=== PATIENT | male | born 1955 | race Caucasian/White ===

== ENCOUNTER 2020-07-07 16:43 | Emergency (ER) | payer BC ==
[2020-07-07 17:01] VITALS: BP 131/79; PULSE 105
[2020-07-07] MEDS ORDERED: Sodium Phosphate,Monobasic/Sodium Phosphate,Dibasic Enema 133 ML Bottle RECTAL ONE (17:13)
--- NOTE | 2020-07-07 17:13 | EDM.PDOC ---
ED HPI GENERAL MEDICAL PROBLEM - General Chief Complaint: General Stated Complaint: CONSTIPATION Time Seen by Provider: 07/07/20 17:00 Source of Information: Reports: Patient History Limitations: Reports: No Limitations - History of Present Illness INITIAL COMMENTS - FREE TEXT/NARRATIVE: 65 YO WM PRESENTS TO ER COMPLAINING OF CONSTIPATION X 6 DAYS. PT STATES HE RECENTLY STARTED CHEMOTHERAPY AND WAS CONCERNED THIS MIGHT BE THE REASON FOR HIS CONSTIPATION. PT DENIES ANY ABDOMINAL PAIN, NO NAUSEA/VOMITING. PT REPORTS HE HAS BEEN PASSING GAS AND EATING AND DRINKING NORMALLY. PT DENIES FEVER/CHILLS, NO RECTAL BLEEDING. PT STATES HE TOOK STOOL SOFTENER AND MILK OF MAGNESIA WITHOUT SUCCESSFUL BM. Duration: Day(s): (6) Location: Reports: Generalized Severity: Mild Worsens with: Reports: None Associated Symptoms: Reports: No Other Symptoms. Denies: Fever/Chills, Loss of Appetite, Nausea/Vomiting, Weakness - Related Data Allergies Allergy/AdvReac Type Severity Reaction Status Date / Time No Known Drug Allergies Allergy NKDA Verified 07/07/20 17:00 Home Meds: Home Meds Cyanocobalamin/Folic AC/Vit B6 [Westab Max Tablet] 1 tab PO DAILY 07/07/20 [History] Ondansetron [Zofran] 8 mg PO Q8H PRN 07/07/20 [History] Pantoprazole [ProTONIX] 40 mg PO DAILY 07/07/20 [History] azaCITIDine [Azacitidine] 100 mg IJ ASDIRECTED 07/07/20 [History] polyethylene glycoL 3350 [MiraLAX] 17 gm PO DAILY PRN #10 packet 07/07/20 [Rx] Past Medical History Musculoskeletal History: Reports: Other (See Below) Other Musculoskeletal History: broken off drill bit to left knee - Infectious Disease History Infectious Disease History: Reports: Chicken Pox, Measles - Past Surgical History Musculoskeletal Surgical History: Reports: Other (See Below) Social & Family History - Family History : Reports: Renal Disease/Insufficiency Endocrine/Metabolic: Reports: Diabetes, type II ED ROS GENERAL - Review of Systems Review Of Systems: See Below Constitutional: Reports: No Symptoms HEENT: Reports: No Symptoms Respiratory: Reports: No Symptoms Cardiovascular: Reports: No Symptoms Endocrine: Reports: No Symptoms GI/Abdominal: Reports: No Symptoms : Reports: No Symptoms Musculoskeletal: Reports: No Symptoms Skin: Reports: No Symptoms Neurological: Reports: No Symptoms Psychiatric: Reports: No Symptoms Hematologic/Lymphatic: Reports: No Symptoms Immunologic: Reports: No Symptoms ED EXAM, GENERAL - Physical Exam Exam: See Below Exam Limited By: No Limitations General Appearance: Alert, WD/WN, No Apparent Distress Throat/Mouth: Normal Inspection, Normal Lips, Normal Teeth, Normal Gums, Normal Oropharynx, Normal Voice, No Airway Compromise Head: Atraumatic, Normocephalic Neck: Normal Inspection, Supple, Non-Tender, Full Range of Motion Respiratory/Chest: No Respiratory Distress, Lungs Clear, Normal Breath Sounds, No Accessory Muscle Use, Chest Non-Tender Cardiovascular: Normal Peripheral Pulses, Regular Rate, Rhythm, No Edema, No Gallop, No JVD, No Murmur, No Rub GI/Abdominal: Normal Bowel Sounds, Soft, Non-Tender, No Organomegaly, No Distention, No Abnormal Bruit, No Mass Back Exam: Normal Inspection, Full Range of Motion, NT Extremities: Normal Inspection, Normal Range of Motion, Non-Tender, Normal Capillary Refill, No Pedal Edema Neurological: Alert, Oriented, CN II-XII Intact, Normal Cognition, Normal Gait, Normal Reflexes, No Motor/Sensory Deficits Psychiatric: Normal Affect, Normal Mood Skin Exam: Warm, Dry, Intact, Normal Color, No Rash Lymphatic: No Adenopathy Course - Vital Signs Last Recorded V/S: Last Vital Signs Temp 36.7 C 07/07/20 16:50 Pulse 105 H 07/07/20 16:50 Resp 18 07/07/20 16:50 BP 131/79 07/07/20 16:50 Pulse Ox 99 07/07/20 16:50 - Orders/Labs/Meds Meds: Medications Discontinued Medications Generic Name Dose Route Start Last Admin Trade Name Freq PRN Reason Stop Dose Admin Sodium Biphosphate/Sodium Phosphate 133 ml 07/07/20 17:13 07/07/20 17:19 Fleet Enema RECTAL 07/07/20 17:14 133 ml ONETIME ONE Administration Departure - Departure Time of Disposition: 17:33 Disposition: Home, Self-Care 01 Condition: Good Clinical Impression: Constipation Qualifiers: Constipation type: slow transit constipation Qualified Code(s): K59.01 - Slow transit constipation - Discharge Information Prescriptions: polyethylene glycoL 3350 [MiraLAX] 17 gm PO DAILY PRN #10 packet PRN Reason: Constipation Instructions: Constipation, Adult, [id number] Referrals: Cameron Rachel RESIDENTIAL CAREGIVER [Primary Care Provider] - Forms: ED Department Discharge Additional Instructions: 1. DISCHARGE HOME 2. MIRALAX FOR CONTINUED CONSTIPATION 3. DRINK PLENTY OF FLUIDS AND MAINTAIN AN ACTIVE LIFESTYLE 4. FOLLOW UP WITH PCP IF SYMPTOMS CONTINUE 5. RETURN TO ER FOR WORSENING SYMPTOMS Sepsis Event Note (ED) - Evaluation Sepsis Screening Result: No Definite Risk - Focused Exam Vital Signs: Vital Signs Temp Pulse Resp BP Pulse Ox 07/07/20 16:50 36.7 C 105 H 18 131/79 99 - Assessment/Plan Assessment:: 1. CONSTIPATION Plan: 1. DISCHARGE HOME 2. MIRALAX FOR CONTINUED CONSTIPATION 3. DRINK PLENTY OF FLUIDS AND MAINTAIN AN ACTIVE LIFESTYLE 4. FOLLOW UP WITH PCP IF SYMPTOMS CONTINUE 5. RETURN TO ER FOR WORSENING SYMPTOMS
[2020-07-07] MEDS ORDERED: Magnesium Citrate Solution 296 ML Bottle PO ONE (17:37)
== END 2020-07-07 18:00 | disposition home or self-care (01) ==
LOC: KA.ED 16:43
DX: K59.01 Slow transit constipation (principal)
CPT/HCPCS: 99283; A9270-GY

== ENCOUNTER 2020-08-11 16:22 | Emergency (ER) | payer BC ==
[2020-08-11] MEDS ORDERED: Ondansetron 4 MG/2 ML SDV IVPUSH ONE (16:23)
[2020-08-11] MEDS ORDERED: Sodium Chloride 0.9% 1,000 ML IV ONE (16:23)
--- NOTE | 2020-08-11 16:31 | EDM.PDOC ---
ED HPI GENERAL MEDICAL PROBLEM - General Chief Complaint: Gastrointestinal Problem Stated Complaint: N/V/D Time Seen by Provider: 08/11/20 16:30 Source of Information: Reports: Patient - History of Present Illness INITIAL COMMENTS - FREE TEXT/NARRATIVE: Garcia, 65-year-old male, presents today after experiencing nausea vomiting as well as diarrhea earlier in the day. He feels somewhat fatigued at this time. Was exposed to a grandchild on Wednesday who had gastrointestinal symptoms at that time. Had low-grade fever at home but no fever here upon his arrival. Received platelets and blood transfusion on Wednesday, 03 August 2020 had [place] secondary of his chemotherapy treatment. Is due for lab work again tomorrow secondary of his chronic recurring anemia trying to maintain hemoglobin of 6.5 or greater, and thrombocytopenia, platelets greater than 10. He previously had COVID-19 roughly 2 months ago and was asymptomatic with that diagnosis. He had no sequela after the first month after diagnosis. Onset: Today, Sudden Duration: Hour(s): - Related Data Allergies Allergy/AdvReac Type Severity Reaction Status Date / Time No Known Drug Allergies Allergy NKDA Verified 08/11/20 16:47 Home Meds: Home Meds Cyanocobalamin/Folic AC/Vit B6 [Westab Max Tablet] 1 tab PO DAILY 07/07/20 [History] Ondansetron [Zofran] 8 mg PO Q8H PRN 07/07/20 [History] Pantoprazole [ProTONIX] 40 mg PO DAILY 07/07/20 [History] azaCITIDine [Azacitidine] 100 mg IJ ASDIRECTED 07/07/20 [History] polyethylene glycoL 3350 [MiraLAX] 17 gm PO DAILY PRN #10 packet 07/07/20 [Rx] Past Medical History HEENT History: Reports: Impaired Vision Musculoskeletal History: Reports: Other (See Below) Other Musculoskeletal History: broken off drill bit to left knee Oncologic (Cancer) History: Reports: Other (See Below) (MDS Myelodysplastic syndrome) - Infectious Disease History Infectious Disease History: Reports: Chicken Pox, Measles - Past Surgical History Musculoskeletal Surgical History: Reports: Other (See Below) Social & Family History - Family History : Reports: Renal Disease/Insufficiency Endocrine/Metabolic: Reports: Diabetes, type II - Caffeine Use Caffeine Use: Reports: None ED ROS GENERAL - Review of Systems Review Of Systems: Comprehensive ROS is negative, except as noted in HPI. ED EXAM, GENERAL - Physical Exam Exam: See Below Free Text/Narrative:: Alert, oriented, with evidence of pallor. HEENT is negative discharge or deformity. There are bruises to the upper extremities visible. Neck is soft supple no lymphadenopathy Thorax is clear mildly diminished bases with no wheezes nor crackles. Cardiac is S1-S2 with no evidence of murmur. Abdomen is soft bowel sounds are present. There is trace edema to the lower extremities. Skin is warm and dry. Course - Vital Signs Last Recorded V/S: Last Vital Signs Temp 101.1 F H 08/11/20 17:30 Pulse 89 08/11/20 17:45 Resp 16 08/11/20 17:45 BP 96/55 L 08/11/20 17:45 Pulse Ox 98 08/11/20 17:45 - Orders/Labs/Meds Orders: Active Orders 24 hr Category Date Time Status Cefepime [Maxipime] 1 gm Med 08/11/20 17:54 Active Sodium Chloride 0.9% [Normal Saline] 50 ml IV ONETIME Sodium Chloride 0.9% [Normal Saline] 50 ml Med 08/11/20 18:00 Active IV ASDIRECTED Medication Orders Cefepime HCl 1 gm/ Sodium (Chloride) 50 mls @ 100 mls/hr IV ONETIME ONE Stop: 08/11/20 18:23 Sodium Chloride (Normal Saline) 50 mls @ 100 mls/hr IV ASDIRECTED SILVINA Labs: Laboratory Tests 08/11/20 08/11/20 Range/Units 16:30 16:55 WBC 6.22 (5.00-10.00) 10^3/uL RBC 1.74 L (4.50-6.00) 10^6/uL Hgb 5.2 L* (13.0-17.0) g/dL Hct 16.3 L* (40.0-52.0) % MCV 93.7 H (82.0-92.0) fL MCH 29.9 (27.0-31.0) pg MCHC 31.9 L (32.0-36.0) g/dL RDW 17.9 H (11.5-14.5) % Plt Count 3 L* (150-400) 10^3/uL MPV TNP Immature Gran % (Auto) 0.6 (0.0-5.0) % Neut % (Auto) 76.8 H (50.0-70.0) % Lymph % (Auto) 4.3 L (20.0-40.0) % [place] % (Auto) 17.5 H (2.0-8.0) % Eos % (Auto) 0.6 L (1.0-3.0) % Baso % (Auto) 0.2 (0.0-1.0) % Neut # (Auto) 4.77 (2.50-7.00) 10^3/uL Lymph # (Auto) 0.27 L (1.00-4.00) 10^3/uL [place] # (Auto) 1.09 H (0.10-0.80) 10^3/uL Eos # (Auto) 0.04 L (0.10-0.30) 10^3/uL Baso # (Auto) 0.01 (0.00-0.10) 10^3/uL Immature Gran # (Auto) 0.04 (0.00-0.50) 10^3/uL Sodium 138 (136-145) mmol/L Potassium 3.9 (3.5-5.1) mmol/L Chloride 105 (98-107) mmol/L Carbon Dioxide 25.0 (21.0-32.0) mmol/L Anion Gap 11.9 (5-15) mmol/L BUN 18 (7-18) mg/dL Creatinine 0.86 (0.51-1.17) mg/dL Est Cr Clr Drug Dosing 89.08 mL/min Estimated GFR (MDRD) > 60 mL/min Glucose 139 (70-140) mg/dL Calcium 7.7 L (8.7-10.3) mg/dL Total Bilirubin 0.9 (0.2-1.0) mg/dL AST 17 (15-37) U/L ALT 29 (14-63) U/L Alkaline Phosphatase 56 (46-116) U/L Total Protein 6.0 L (6.4-8.2) g/dL Albumin 3.09 L (3.40-5.00) g/dL Meds: Medications Generic Name Dose Route Start Last Admin Trade Name Freq PRN Reason Stop Dose Admin Cefepime HCl 1 gm/ Sodium 50 mls @ 100 mls/hr 08/11/20 17:54 Chloride IV 08/11/20 18:23 ONETIME ONE Sodium Chloride 50 mls @ 100 mls/hr 08/11/20 18:00 Normal Saline IV ASDIRECTED SILVINA Discontinued Medications Generic Name Dose Route Start Last Admin Trade Name Gabbi PRN Reason Stop Dose Admin Sodium Chloride 1,000 mls @ 999 mls/hr 08/11/20 16:23 08/11/20 16:30 Normal Saline IV 08/11/20 17:23 999 mls/hr .BOLUS ONE Administration Ondansetron HCl 4 mg 08/11/20 16:23 08/11/20 16:40 Zofran IVPUSH 08/11/20 16:24 4 mg ONETIME ONE Administration - Re-Assessments/Exams Free Text/Narrative Re-Assessment/Exam: 08/11/20 17:48 Contact was made at 1710 to the [facility] with conversation internal medicine. They are unable to accept Mr. Dominguez secondary of amount of blood in hand as well as platelets available. Concern for antibody development also plays a part in this as he is now undergone several previous transfusions. 1725 phone call was made to [facility] 1 call and was placed on hold awaiting at this time for return phone call to see if they would be able to accept Mr. Dominguez for platelet and red blood cell infusion. 08/11/20 18:09 Phone call return from [facility] [address] Buck accepts patient to the [facility] facility. With recent spike in his temperature to 101.1 he recommended a gram of cefepime to be administered and chest x-ray be performed. Due to 30-minute drive for our radiology staff production assembler in her ambulance being available in 10 minutes, chest x-ray will be deferred to here to be performed at [facility] with antibiotic to be infused and ambulance transport to pursue to [facility]. Departure - Departure Time of Disposition: 18:10 Disposition: DC/Tfer to Acute Hospital 02 Condition: Fair Clinical Impression: MDS (myelodysplastic syndrome), Anemia, Disorder involving thrombocytopenia - Discharge Information *PRESCRIPTION DRUG MONITORING PROGRAM REVIEWED*: Not Applicable *COPY OF PRESCRIPTION DRUG MONITORING REPORT IN PATIENT JACKIE: Not Applicable Forms: ED Department Discharge, Interfacility Transfer EMTALA Additional Instructions: Transfer by [facility] ambulance to [facility]. Sepsis Event Note (ED) - Focused Exam Vital Signs: Vital Signs Temp Pulse Resp BP Pulse Ox 08/11/20 17:45 89 16 96/55 L 98 08/11/20 17:30 101.1 F H 87 98 H 95/56 L 08/11/20 17:15 86 16 89/52 L 97 08/11/20 16:50 91 16 93/53 L 98 08/11/20 16:49 95 95/58 L 98 08/11/20 16:22 99.6 F 93 16 110/61 97 - Problem List & Annotations (1) MDS (myelodysplastic syndrome) SNOMED Code(s): 357049115 Code(s): D46.9 - MYELODYSPLASTIC SYNDROME, UNSPECIFIED Status: Chronic Priority: High Onset Date: ~05/31/20 (2) Anemia SNOMED Code(s): 156379834 Code(s): D64.9 - ANEMIA, UNSPECIFIED Status: Acute Priority: High Qualifiers: Anemia type: bone marrow failure (3) Disorder involving thrombocytopenia Status: Chronic Priority: High - Problem List Review Problem List Initiated/Reviewed/Updated: Yes - My Orders Last 24 Hours: My Active Orders 08/11/20 17:54 Cefepime [Maxipime] 1 gm Sodium Chloride 0.9% [Normal Saline] 50 ml IV ONETIME 08/11/20 18:00 Sodium Chloride 0.9% [Normal Saline] 50 ml IV ASDIRECTED - Assessment/Plan Last 24 Hours: My Active Orders 08/11/20 17:54 Cefepime [Maxipime] 1 gm Sodium Chloride 0.9% [Normal Saline] 50 ml IV ONETIME 08/11/20 18:00 Sodium Chloride 0.9% [Normal Saline] 50 ml IV ASDIRECTED Plan: Transfer by [facility] ambulance to [facility]
[2020-08-11 17:10] LABS: ANION GAP 11.9 mmol/L (5-15); CHLORIDE,CL 105 mmol/L (98-107); SODIUM,NA 138 mmol/L (136-145)
[2020-08-11 17:46] VITALS: BP 96/55; PULSE 89
[2020-08-11] MEDS ORDERED: Cefepime 1 GM in Sodium Chloride 0.9% 50 ML IV ONE ×2 (17:54→18:15)
[2020-08-11] MEDS ORDERED: Sodium Chloride 0.9% 50 ML IV SCH (18:00)
[2020-08-11] MEDS ORDERED: Sodium Chloride 0.9% 1,000 ML IV SCH (18:30)
== END 2020-08-11 19:00 ==
LOC: KA.ED 16:22
DX: D46.9 Myelodysplastic syndrome, unspecified (principal); D69.6 Thrombocytopenia, unspecified; Z79.899 Other long term (current) drug therapy
CPT/HCPCS: 80053; 85025; 96365; 96375; 99284; 99285-25; J0692; J2405; J7030

== ENCOUNTER 2022-05-31 11:10 | Emergency (ER) | payer MEDICARE, BC ==
[2022-05-31] MEDS ORDERED: Albuterol 8 GM Inhaler INH ONE (11:11)
[2022-05-31] MEDS ORDERED: Sodium Chloride 0.9% 1,000 ML IV ONE (11:30)
[2022-05-31] MEDS ORDERED: Albuterol/Ipratropium 3.0-0.5 MG/3 ML Neb Soln INH ONE (12:10)
[2022-05-31] MEDS ORDERED: cefTRIAXone 1 GM Vial IVPUSH ONE (12:15)
[2022-05-31] MEDS ORDERED: Sodium Chloride 0.9% 10 ML Syringe IV PRN (14:22)
[2022-06-15 11:29] LABS: ANION GAP 8.1 mmol/L (5-15); CHLORIDE,CL 97 mmol/L (98-115); ESTIMATED GFR 99 mL/min (>=60); SODIUM,NA 129 mmol/L (136-145)
[2022-06-15 11:31] LABS: HEMOGLOBIN A1C 5.7 % (4.3-5.7)
[2022-06-15 11:32] LABS: CORONAVIRUS COVID-19 NAA NEGATIVE (NEGATIVE); RESPIRATORY SYNCYTIAL VIR NAA NEGATIVE (NEGATIVE)
== END 2022-05-31 12:45 | disposition home or self-care (01) ==
LOC: KA.ED 11:10
DX: J18.9 Pneumonia, unspecified organism (principal); R73.9 Hyperglycemia, unspecified; E87.1 Hypo-osmolality and hyponatremia; Z20.822 Contact with and (suspected) exposure to COVID-19
CPT/HCPCS: 0241U; 36415; 71046; 80048; 81001; 83036; 83605; 85025; 87081; 87430; 96361; 96374; 99285; A9270; J0696; J7030; J7620-GY

== ENCOUNTER 2022-06-04 12:11 | Inpatient (IN) | payer MEDICARE, BC ==
[2022-06-04] MEDS: Sodium Chloride 0.9% 1,000 ML IV SCH ×2 (12:41→22:30)
[2022-06-04 12:54] LABS: O2 DELIVERY DEVICE ROOM AIR
[2022-06-04 12:55] LABS: PCO2 ARTERIAL 32 mmHG (35-48)
[2022-06-04 12:56] LABS: BASE EXCESS ARTERIAL -1 mmol/L ((-2)-(+3)); BICARBONATE,ARTERIAL 22 mmol/L (21-28); O2 SATURATION ARTERIAL 96 %; PO2 ARTERIAL 77 mmHG (83-108)
[2022-06-04 13:09] LABS: ANION GAP 10.4 mmol/L (5-15)
[2022-06-04] MEDS ORDERED: Albuterol 8 GM Inhaler INH PRN (17:00)
[2022-06-04] MEDS: Pantoprazole 40 MG Vial IVPUSH SCH (17:29)
[2022-06-04] MEDS: Levofloxacin/Dextrose 5%-Water 750 MG in Premix Bag 1 BAG IV SCH (17:29)
[2022-06-04] MEDS: Acyclovir 400 MG Tab PO SCH ×2 (17:29→20:14)
[2022-06-04] MEDS: Cetirizine 10 MG Tab PO SCH (20:14)
[2022-06-05 07:40] LABS: ANION GAP 9.3 mmol/L (5-15)
[2022-06-05] MEDS ORDERED: Sodium Chloride 0.9% 10 ML Syringe FLUSH PRN (08:45)
[2022-06-05] MEDS: Acyclovir 400 MG Tab PO SCH ×2 (09:24→20:08)
[2022-06-05] MEDS: Pantoprazole 40 MG Vial IVPUSH SCH (09:24)
[2022-06-05] MEDS: Sodium Chloride 0.9% 10 ML Syringe FLUSH PRN (09:25)
[2022-06-05] MEDS ORDERED: Iopamidol 755 Mg/ML 75 ML Bottle IVPUSH ONE (13:47)
[2022-06-05] MEDS ORDERED: Sodium Chloride 0.9% 100 ML IV SCH (14:00)
[2022-06-05] MEDS: Levofloxacin/Dextrose 5%-Water 750 MG in Premix Bag 1 BAG IV SCH (16:25)
[2022-06-05] MEDS: Cetirizine 10 MG Tab PO SCH (20:08)
[2022-06-06] MEDS: Acyclovir 400 MG Tab PO SCH ×2 (09:10→22:17)
[2022-06-06] MEDS: Pantoprazole 40 MG Vial IVPUSH SCH (09:10)
[2022-06-06] MEDS: FEXOFENADINE 180 MG PO SCH (09:11)
[2022-06-06] MEDS: Levofloxacin/Dextrose 5%-Water 750 MG in Premix Bag 1 BAG IV SCH (17:28)
[2022-06-06] MEDS ORDERED: guaiFENesin/Dextromethorphan 100-10 MG/5 ML Soln 5 ML Cup PO PRN (19:57)
[2022-06-06] MEDS: Zolpidem 5 MG Tab PO SCH (22:17)
[2022-06-06] MEDS: Cetirizine 10 MG Tab PO SCH (22:18)
[2022-06-07 07:57] LABS: ANION GAP 12.1 mmol/L (5-15)
[2022-06-07] MEDS: Pantoprazole 40 MG Vial IVPUSH SCH (08:58)
[2022-06-07] MEDS: Acyclovir 400 MG Tab PO SCH ×2 (08:58→21:08)
[2022-06-07] MEDS: FEXOFENADINE 180 MG PO SCH (09:00)
[2022-06-07] MEDS ORDERED: Levalbuterol HCl 1.25 MG/3 ML Neb NEB SCH (13:00)
[2022-06-07] MEDS: Levalbuterol HCl 1.25 MG/3 ML Neb NEB SCH ×2 (16:11→21:08)
[2022-06-07] MEDS: Levofloxacin/Dextrose 5%-Water 750 MG in Premix Bag 1 BAG IV SCH (16:58)
[2022-06-07] MEDS ORDERED: Sodium Chloride 0.9% 250 ML IV SCH (17:00)
[2022-06-07] MEDS: Zolpidem 5 MG Tab PO SCH (21:08)
[2022-06-07] MEDS: Cetirizine 10 MG Tab PO SCH (21:08)
[2022-06-08] MEDS: Levalbuterol HCl 1.25 MG/3 ML Neb NEB SCH ×3 (06:39→21:14)
[2022-06-08] MEDS: Acyclovir 400 MG Tab PO SCH ×2 (08:31→21:13)
[2022-06-08] MEDS: FEXOFENADINE 180 MG PO SCH (08:31)
[2022-06-08] MEDS: Pantoprazole 40 MG Vial IVPUSH SCH (08:32)
[2022-06-08] MEDS: Levofloxacin/Dextrose 5%-Water 750 MG in Premix Bag 1 BAG IV SCH (16:43)
[2022-06-08] MEDS: Cetirizine 10 MG Tab PO SCH (21:14)
[2022-06-08] MEDS: Sodium Chloride 0.9% 10 ML Syringe FLUSH PRN (21:21)
[2022-06-08] MEDS: Zolpidem 5 MG Tab PO SCH (22:12)
[2022-06-09] MEDS: Levalbuterol HCl 1.25 MG/3 ML Neb NEB SCH (07:44)
[2022-06-09] MEDS: Pantoprazole 40 MG Vial IVPUSH SCH (08:48)
[2022-06-09] MEDS: Acyclovir 400 MG Tab PO SCH (08:49)
[2022-06-09] MEDS: FEXOFENADINE 180 MG PO SCH (08:49)
[2022-06-09 11:14] VITALS: BP 103/66; PULSE 98
== END 2022-06-09 13:56 | disposition home or self-care (01) | DRG 194 ==
LOC: KA.MS 12:11
PROVIDERS: ADMIT Nurse Practitioner Family; ATTEND Nurse Practitioner Family
DX: J18.9 Pneumonia, unspecified organism (principal); D61.818 Other pancytopenia; E46 Unspecified protein-calorie malnutrition; E87.1 Hypo-osmolality and hyponatremia; E87.3 Alkalosis; Z94.81 Bone marrow transplant status; D84.9 Immunodeficiency, unspecified; Z68.1 Body mass index [BMI] 19.9 or less, adult; K22.0 Achalasia of cardia; D46.9 Myelodysplastic syndrome, unspecified; D69.6 Thrombocytopenia, unspecified; K59.09 Other constipation; H54.7 Unspecified visual loss; R63.4 Abnormal weight loss; Z86.16 Personal history of COVID-19
CPT/HCPCS: 36415; 36600; 71046; 71275; 80048; 80053; 82436; 82728; 82803; 83735; 83930; 83935; 84133; 84145; 84300; 84443; 85025; 85379; 94640; 97161-GP; A9270-GY; C9113; J1956; J3490; J7030; J7050; J7612-GY; Q9967

== ENCOUNTER 2022-10-13 11:59 | Day surgery (SDC) | payer MEDICARE, BC ==
[2022-10-13] MEDS: Lactated Ringers 1,000 ML IV SCH (12:50)
[2022-10-13] MEDS ORDERED: Midazolam 1 MG/ML 2 ML SDV ONE (13:56)
[2022-10-13] MEDS ORDERED: Propofol 200 MG/20 ML SDV ONE (13:56)
[2022-10-13] MEDS ORDERED: Sodium Chloride 0.9% 10 ML Syringe FLUSH PRN (14:00)
[2022-10-13 17:25] VITALS: BP 115/72; PULSE 75
== END 2022-10-13 16:20 | disposition home or self-care (01) ==
LOC: KA.SDS 11:59
PROVIDERS: ATTEND Surgery
DX: Z12.11 Encounter for screening for malignant neoplasm of colon (principal)
CPT/HCPCS: J2250; J2704; J7120

== ENCOUNTER 2024-05-27 11:24 | Emergency (ER) | payer MEDICARE, BC ==
[2024-05-27] MEDS ORDERED: Sodium Chloride 0.9% 10 ML Syringe FLUSH PRN (11:44)
[2024-05-27 11:56] LABS: BASOPHILS ABSOLUTE AUTO 0.05 10^3/uL (0.00-0.10); BASOPHILS PERCENT AUTO 0.6 % (0.0-1.0); EOSINOPHILS PERCENT AUTO 2.5 % (1.0-3.0); HEMATOCRIT 42.5 % (40.0-52.0); HEMOGLOBIN 14.6 g/dL (13.0-17.0); IMMATURE GRAN ABSOLUTE AUTO 0.01 10^3/uL (0.00-0.50); IMMATURE GRAN PERCENT AUTO 0.1 % (0.0-5.0); LYMPHOCYTES ABSOLUTE AUTO 0.56 10^3/uL (1.00-4.00); LYMPHOCYTES PERCENT AUTO 7.1 % (20.0-40.0); MEAN CORPUSCULAR HEMOGLOBIN 31.1 pg (27.0-31.0); MEAN CORPUSCULAR HGB CONC 34.4 g/dL (32.0-36.0); MEAN CORPUSCULAR VOLUME 90.4 fL (82.0-92.0); MEAN PLATELET VOLUME 9.9 fL (7.4-10.4); MONOCYTES ABSOLUTE AUTO 0.81 10^3/uL (0.10-0.80); MONOCYTES PERCENT AUTO 10.3 % (2.0-8.0); NEUTROPHILS ABSOLUTE AUTO 6.26 10^3/uL (2.50-7.00); NEUTROPHILS PERCENT AUTO 79.4 % (50.0-70.0); PLATELET COUNT,PLT 155 10^3/uL (150-400); RED CELL DISTRIBUTION WIDTH 13.7 % (11.5-14.5); WHITE BLOOD CELL COUNT,WBC 7.89 10^3/uL (5.00-10.00)
[2024-05-27 12:16] LABS: ALBUMIN 2.97 g/dL (3.40-5.00); ANION GAP 12.1 mmol/L (5-15); BILIRUBIN TOTAL 0.5 mg/dL (0.2-1.0); CALCIUM 8.7 mg/dL (8.7-10.3); CARBON DIOXIDE,CO2 25.9 mmol/L (21.0-32.0); CREATININE 0.77 mg/dL (0.51-1.17); EST CRCL DRUG DOSING (CG) 81.29 mL/min; PROTEIN TOTAL,TP 6.4 g/dL (6.4-8.2)
[2024-05-27] MEDS: Albuterol/Ipratropium 3.0-0.5 MG/3 ML Neb Soln NEB ONE (13:09)
[2024-05-27] MEDS: methylPREDNISolone Sodium Succinate 125 MG/2 ML SDV IVPUSH ONE (13:10)
[2024-05-27] MEDS: Water For Injection, Sterile 20 ML ONE (13:15)
[2024-05-27 13:35] VITALS: BP 141/87; PULSE 86
== END 2024-05-27 13:30 | disposition home or self-care (01) ==
LOC: KA.ED 11:24
DX: J20.9 Acute bronchitis, unspecified (principal); K21.9 Gastro-esophageal reflux disease without esophagitis; Z86.16 Personal history of COVID-19; Z79.899 Other long term (current) drug therapy
CPT/HCPCS: 36415; 71045; 80053; 83880; 84484; 85025; 85379; 93005; 93010; 96374; 99284; 99285-25; J2919; J7620-GY

== ENCOUNTER 2024-07-04 08:04 | Day surgery (SDC) | payer MEDICARE, BC ==
[~2024-07-04 08:04] MED LIST: Sodium Chloride 0.9% 10 ML Syringe FLUSH PRN
[2024-07-04] MEDS: Lactated Ringers 1,000 ML IV SCH (08:45)
[2024-07-04] MEDS: Albuterol/Ipratropium 3.0-0.5 MG/3 ML Neb Soln ONE (08:55)
[2024-07-04] MEDS ORDERED: Midazolam 1 MG/ML 2 ML SDV ONE (08:57)
[2024-07-04] MEDS ORDERED: Glycopyrrolate 0.2 MG/ML SDV ONE (08:57)
[2024-07-04] MEDS ORDERED: Propofol 200 MG/20 ML SDV ONE (08:57)
[2024-07-04] MEDS ORDERED: Lidocaine 2% 100 MG/5 ML Syringe ONE (09:00)
[2024-07-04 11:14] VITALS: BP 129/87; PULSE 84
== END 2024-07-04 11:20 | disposition home or self-care (01) ==
LOC: KA.SDS 08:04
PROVIDERS: ATTEND Surgery
DX: K22.2 Esophageal obstruction (principal); K29.50 Unspecified chronic gastritis without bleeding; K29.80 Duodenitis without bleeding; Z48.290 Encounter for aftercare following bone marrow transplant; D46.9 Myelodysplastic syndrome, unspecified
CPT/HCPCS: 00731; 81003; J1596; J2250; J2704; J3490; J7120; J7620-GY